=== PATIENT | male | born 1960 | race Caucasian/White ===

== ENCOUNTER 2023-12-11 12:24 | Outpatient (CLI) | payer OTHER, SELFPAY ==
--- NOTE | ~2023-12-11 | PE_ITS ---
EXAMINATION: PET_PETPSMAST_PT DATE: 12/11/2023 15:27 INDICATION: Prostate cancer TECHNIQUE: 5.837 mCi of Locametz Ga-68([id number]) was administered i.v. Low dose computed denise ography (CT) images were acquired from the base of the brain to the base of the brain to the proximal thighs for attenuation correction and anatomic localization. Positron emission tomography (PET) imag es were acquired in the same distribution beginning 84 minutes after injection. Images including fuse d PET/CT images were reconstructed in axial, coronal, and sagittal planes. Automated exposure control technique was employed. The dose-length product was 927.38mGy-cm. COMPARISON: None FINDINGS: Head/neck: Typical pattern of symmetric physiologic increased activity in the lacrimal, parotid and submandibula r glands as well as along the mucosa of the nasal and oral cavities, pharynx and hypopharynx. No path ologically enlarged cervical lymphadenopathy or suspicious foci of increased uptake in the visualized head or neck. Chest: Mild dependent atelectasis in both lungs. Small calcified right lower lobe nodule consistent with old granulomatous disease. No suspicious pulmonary nodules, pneumonia, pulmonary edema or pleural effusi on. Cardiomegaly. Atherosclerotic coronary artery calcific lesion. No pericardial effusion. Fusiform ascending thoracic aortic aneurysm measuring up to 4.6 cm maximal diameter. No pathologically enlarge d or PSMA avid thoracic lymphadenopathy. Abdomen/pelvis/proximal thighs: Physiologic renal accumulation and excretion of activity in the kidneys, bladder and along portions o f ureters. 1.4 cm low-attenuation photopenic left renal cyst. Nonobstructing 3 mm stone at a lower po le calyx of the right kidney. Postoperative change of prior prostatectomy. Normal degree and slightly heterogenous pattern of increased uptake throughout the liver and spleen without radiologic correlat e or dominant PSMA avid lesion. The gallbladder, pancreas and bilateral adrenal glands are normal. Mo derate uptake scattered throughout the bowels with typical duodenal and proximal jejunal predominance and without radiologic correlate, also likely physiologic. No other abnormal foci of increased uptak e or pathologically enlarged lymphadenopathy in the abdomen, pelvis or proximal thighs. Musculoskeletal: There is a more prominent focus of uptake with maximal SUV of 26.3 at the left side of the L1 vertebr al body where there is a subtle peripherally sclerotic 1.3 cm lesion consistent with metastatic disea se. There is a second tiny focus of mild PSMA activity with maximal SUV of 3.1 situated at the articu lation of the posterior right sixth rib and the right transverse process of T6 without evident associ ated lytic or blastic bone lesion also suspicious for early metastatic disease. IMPRESSION: 1. A couple PSMA avid bone lesions the more prominent with 1.3 cm slightly sclerotic lesion at L1 con sistent with metastatic prostate cancer. Reviewed, dictated and finalized at location A. IMPRESSION: 1. A couple PSMA avid bone lesions the more prominent with 1.3 cm slightly scle rotic lesion at L1 consistent with metastatic prostate cancer.
== END 2023-12-11 12:25 | disposition home or self-care (01) ==
DX: C61 Malignant neoplasm of prostate (principal)
CPT/HCPCS: 78815; A9596